=== PATIENT | female | born 1960 | race Caucasian/White ===

== ENCOUNTER 2018-10-31 14:03 | Emergency (ER) | payer OTHER ==
[~2018-10-31] VITALS: Ht 154.9 cm; Wt 94.4 kg
[2018-10-31 14:12] VITALS: BP 194/97
--- NOTE | 2018-10-31 14:29 | PHYS DOC ---
Past Medical History Past Medical History: No Pertinent History Past Surgical History: No Surgical History Alcohol Use: None Drug Use: None Adult General Chief Complaint Chief Complaint: DENTAL PROBLEM HPI HPI Patient is a 58 year old female who presents with a constant sharp 10 out of 10 frontal gum pain that began 6 days ago after she had a couple teeth extracted. Patient denies any fever or trismus. She states she has followed up with her dentist who informed her everything looks fine and she does not have a dry socket. Patient states she has continued to have the pain. She states she has tried ibuprofen with no relief. Review of Systems Review of Systems Constitutional: Denies fever or chills [] HENT: Reports dental pain. Denies nasal congestion or sore throat [] Integument: Denies rash or skin lesions [] Neurologic: Denies headache, focal weakness or sensory changes [] All other systems were reviewed and found to be within normal limits, except as documented in this note. Allergies Allergies Allergies Coded Allergies Type Severity Reaction Last Updated Verified phenobarbital Allergy Severe SWELLING 10/31/18 Yes Physical Exam Physical Exam Constitutional: Well developed, well nourished, no acute distress, non-toxic appearance. [] HENT: Normocephalic, atraumatic, bilateral external ears normal, oropharynx moist, no oral exudates, nose normal. Missing multiple teeth throughout the mouth, it appears she had teeth #765 recently extracted. Skin: Warm, dry, no erythema, no rash. [] Extremities: No tenderness, no cyanosis, no clubbing, ROM intact, no edema. [] Neurologic: Alert and oriented X 3, normal motor function, normal sensory function, no focal deficits noted. [] Psychologic: Affect normal, judgement normal, mood normal. [] Current Patient Data Vital Signs Vital Signs Date Time Temp Pulse Resp B/P (MAP) Pulse Ox O2 Delivery O2 Flow Rate FiO2 10/31/18 14:12 97.5 79 20 194/97 (129) 95 Room Air 97.5 EKG EKG [] Radiology/Procedures Radiology/Procedures [] Course & Med Decision Making Course & Med Decision Making Pertinent Labs and Imaging studies reviewed. (See chart for details) This is a 58-year-old female patient presented to the ED today with dental pain after having multiple teeth extracted 6 days ago. No signs of dry socket. Patient requesting pain relief. Prescription given for hydrocodone very short supply 10 tablets. Encouraged to continue taking ibuprofen in between. Follow- up with her dentist as soon as possible. Estelle Disclaimer Estelle Disclaimer This electronic medical record was generated, in whole or in part, using a voice recognition dictation system. Departure Departure Impression: Primary Impression: Dentalgia Disposition: HOME, SELF-CARE Condition: STABLE Referrals: UNKNOWN PCP NAME (PCP) Follow-up with your dentist as soon as possible Patient Instructions: Dental Pain Additional Instructions: You were evaluated in the emergency room for pain after having your teeth extracted. Take the prescribed pain medicine as needed for pain. Continue taking ibuprofen every 6 hours as needed for pain. Follow-up with your dentist as soon as you can. Scripts Hydrocodone/Apap 5-325 (NORCO 5-325 TABLET) 1 Each Tablet 1 TAB PO Q6HRS PRN for PAIN, #10 TAB Prov: MELANIE CALDERON APRN 10/31/18 MELANIE CALDERON APRN Oct 31, 2018 14:29
[2018-10-31] MEDS ORDERED: HYDR-3164 PO (14:37)
== END 2018-10-31 14:40 | disposition home or self-care (01) ==
LOC: ER 14:03
DX: K08.89 Other specified disorders of teeth and supporting structures (principal); Z88.8 Allergy status to other drugs, medicaments and biological substances
CPT/HCPCS: 99283